=== PATIENT | female | born 1965 | race Caucasian/White ===

== ENCOUNTER 2017-11-02 06:36 | Day surgery (SDC) | payer OTHER ==
--- OUTSIDE RECORDS SUMMARY | 2017-11-02 06:41 | XMS REPORT | Continuity of Care Document ---
:1965 Author Organization Interface Problems Problem Status Onset Classification Date Comments Source Date Reported FIBROMYALGIA Active Condition 09/04/2014 Medical 5 Group ANXIETY Active Condition 09/04/2014 Medical DEPRESSION 5 Group HYPERTENSION Active Condition 09/04/2014 Medical 5 Group VESTIBULAR Active Condition 09/04/2014 Medical NEUROPATHY 5 Group ACCIDENTAL Active Condition 09/04/2014 Medical FALLS, RECURRENT 5 Group OCCIPITAL Active Condition 09/04/2014 Medical NEURALGIA 5 Group IBS Active Condition 09/04/2014 Medical 5 Group Medications Medication Details Route Status Patient Ordering Order Source Instructions Provider Date EFFEXOR XR 150 one cap po Active 09/05/19 Medical MG [id number] daily 15 Group METOPROLOL one po Active 09/05/19 Medical SUCCINATE ER daily 15 Group 100 MG [id number] PROTONIX 20 MG one po Active 09/05/19 Medical TBEC daily 15 Group BENTYL 20 MG one po TID Active 09/05/19 Medical TABS prn 15 Group ZOFRAN 4 MG prn nausea Active 09/05/19 Medical TABS 15 Group Allergies, Adverse Reactions, Alerts Substance Category Reaction Severity Reaction Status Date Comments Source type Reported ULTRAM Drug ULTRAM allergy 5 Medical Group DEPAKOTE Drug DEPAKOTE allergy 5 Medical Group PENICILLIN Drug PENICILLIN allergy 5 Medical Group LEVAQUIN Drug LEVAQUIN allergy 5 Medical Group Immunizations Immunization Date Given Site Status Last Updated Comments Source Results Order Results Value Reference Date Interpretation Comments Source Name Range Vital Signs Vital Sign Value Date Comments Source Respitory Rate 12 09/04/2014 Medical Group Weight 140.8 09/04/2014 Medical Group Height 64.5 09/04/2014 Medical Group Systolic (mm Hg) 108 09/04/2014 Medical Group Diastolic (mm Hg) 67 09/04/2014 Medical Group Heart Rate 73 09/04/2014 Medical Group Encounters Location Location Encounter Encounter Reason Attending ADM DC Status Source Details Type Number For Provider Date Date Visit Headache Office [id number] Dominga 09/04 09/04 Center of Visit 4990 MD Cornelio /2014 Medical [facility] [id number] DOMINGA 08/26 Active [facility] CORNELIO /2015 [facility] [id number] DIONYSIA 11/18 [facility] AMOL /2015 [facility] [id number] DOMINGA 05/18 [facility] CORNELIO /2016 [facility] Procedures Procedure Code Date Perfomer Comments Source
--- OUTSIDE RECORDS SUMMARY | 2017-11-02 06:41 | XMS REPORT | Continuity of Care Document ---
:1965 Author Organization [facility] Care Team Providers Name Role Phone MD Cornelio, Dominga Jason Unavailable Insurance Providers Payer name Policy type / Policy ID Covered alliance party ID Policy Ag Coverage type [place] [employer] C[employer]NA [employer] - CIGNA - MEDICARE PATIENT CIGNA CIGNA CIGNA CIG[place]IC[place]: [id number] CIGNA CIGNA CIGNA CIGNA CIGNA CIGNA CIGNA CIGNA CIGNA Encounters Encounter Performer Location Date Office Visit Dominga Grimes MD Headache Center [facility] Sep 04, 2014 Allergies, Adverse Reactions, Alerts Type Substance Reaction Status Drug allergy ULTRAM Active Drug allergy DEPAKOTE Active Drug allergy PENICILLIN Active Drug allergy LEVAQUIN Active Problems Problem Effective Dates Problem Status FIBROMYALGIA Sep 04, 2014 Active ANXIETY DEPRESSION Sep 04, 2014 Active HYPERTENSION Sep 04, 2014 Active VESTIBULAR NEUROPATHY Sep 04, 2014 Active ACCIDENTAL FALLS, RECURRENT Sep 04, 2014 Active OCCIPITAL NEURALGIA Sep 04, 2014 Active IBS (IRRITABLE BOWEL SYNDROME) Sep 04, 2014 Active Procedures Date Description Comments Sep 04, 2014 smoking status Current every day smoker Medications Medication Instructions Start Date Status EFFEXOR XR 150 MG [id number] one cap po daily Sep 04, 2014 Active METOPROLOL SUCCINATE ER 100 MG [id number] one po daily Sep 04, 2014 Active PROTONIX 20 MG TBEC one po daily Sep 04, 2014 Active BENTYL 20 MG TABS one po TID prn Sep 04, 2014 Active ZOFRAN 4 MG TABS prn nausea Sep 04, 2014 Active Vital Signs Date Description Test Result Sep 04, 2014 respiratory rate E&M - 9279-1 RESP RATE 12 /min Sep 04, 2014 weight E&M - 3141-9 WEIGHT 140.8 lb Sep 04, 2014 height E&M - 8302-2 HEIGHT 64.5 in Sep 04, 2014 blood pressure, systolic - 8480-6 BP SYSTOLIC 108 mm Hg Sep 04, 2014 blood pressure, diastolic - 8462-4 BP DIASTOLIC 67 mm Hg Sep 04, 2014 pulse rate E&M - 8867-4 PULSE RATE 73 /min
[2017-11-02] MEDS ORDERED: Ringers Lactate 1,000 ML IV ONE (07:09)
[2017-11-02] MEDS ORDERED: LIDOCAINE 1% MPF 2 ML AMPULE ONE (07:33)
[2017-11-02] MEDS ORDERED: ONDANSETRON HCL 40 MG/20 ML VIAL ONE (07:33)
[2017-11-02] MEDS ORDERED: PROPOFOL 200 MG/20 ML VIAL IV ONE (07:33)
[2017-11-02] MEDS ORDERED: MIDAZOLAM HCL 2 MG/2 ML INJ ONE (07:38)
[2017-11-02 09:07] VITALS: BP 135/79; TEMP 98.8; O2SAT 99
== END 2017-11-02 09:00 | disposition home or self-care (01) ==
LOC: OR 06:36
PROVIDERS: ATTEND Internal Medicine Gastroenterology
DX: K31.1 Adult hypertrophic pyloric stenosis (principal); K21.9 Gastro-esophageal reflux disease without esophagitis; Z53.9 Procedure and treatment not carried out, unspecified reason; K30 Functional dyspepsia; M79.7 Fibromyalgia
CPT/HCPCS: J2001; J2250; J2405